=== PATIENT | female | born 1995 | race Caucasian/White ===

== ENCOUNTER 2019-11-06 11:13 | Emergency (ER) | payer SELFPAY ==
[~2019-11-06] VITALS: Ht 170.2 cm; Wt 117.9 kg
[2019-11-06 11:15] VITALS: BP 97/51
--- NOTE | 2019-11-06 11:24 | NUR ---
24 YO FEMALE PT TAKING SELF PROGESTERONE INJECTIONS (6 TOTALS) FROM [place], LAST INJECTION WAS ON TUESDAY. PT NOW HAS RASH ON BUTTOCK AREA. ROB
[2019-11-06 12:39] VITALS: BP 97/51
--- NOTE | 2019-11-06 12:39 | NUR ---
Patient discharged with v/s stable. Written and verbal after care instructions given and explained. Patient alert, oriented and verbalized understanding of instructions. Ambulatory with steady gait. All questions addressed prior to discharge. ID band removed. Patient advised to follow up with PMD. Rx of BENEDRYL AND PREDNISONE given. Patient educated on indication of medication including possible reaction and side effects. Opportunity to ask questions provided and answered.
== END 2019-11-06 12:39 | disposition home or self-care (01) ==
LOC: MED 11:13
DX: R21 Rash and other nonspecific skin eruption (principal)
CPT/HCPCS: 99283